=== PATIENT | female | born 1960 | race African-American/Black ===

== ENCOUNTER 2024-05-25 09:42 | Emergency (ER) | payer MEDICARE, MEDICAID ==
[~2024-05-25] VITALS: Ht 162.6 cm; Wt 91.0 kg
[2024-05-25 09:44] VITALS: BP 176/86; PULSE 90; RESP 18; TEMP 98.4; O2SAT 99
[2024-05-25] MEDS ORDERED: CEPH500T MT (09:56)
[2024-05-25] MEDS ORDERED: DIPH103G TP (09:56)
[2024-05-25] MEDS ORDERED: DIPHENHYDRAMINE 50MG CAPSULE PO ONE (10:00)
[2024-05-25] MEDS: CEPHALEXIN 250MG CAPSULE PO ONE (10:19)
[2024-05-25] MEDS: DIPHENHYDRAMINE 25MG CAPSULE PO NR (10:19)
== END 2024-05-25 10:23 | disposition home or self-care (01) ==
LOC: ER 09:42
DX: L03.114 Cellulitis of left upper limb (principal); I10 Essential (primary) hypertension
CPT/HCPCS: 99283; Q0163